=== PATIENT | male | born 1990 | race Caucasian/White ===

== ENCOUNTER 2016-07-28 11:00 | Emergency (ER) ==
[2016-07-28 11:04] VITALS: BP 139/75; TEMP 99.1; BMI 24.4
[2016-07-28] MEDS ORDERED: ZOFRAN 4 MG/2 ML IM STA (11:24)
[2016-07-28] MEDS ORDERED: MORPHINE 4 MG/ML SYRINGE IM STA (11:24)
[2016-07-28] MEDS ORDERED: SILVADENE CREAM TP STA (11:24)
[2016-07-28] MEDS ORDERED: LIDOCAINE OINTMENT 5% TP STA (11:25)
--- NOTE | 2016-07-28 11:28 | ED.PDOC ---
General ED Provider: Dr. KARLY ELIZABETH Chief Complaint: Burn Stated Complaint: burn left forearm Time Seen by Physician: 11:00 Mode of Arrival: Walk-In Information Source: Patient Exam Limitations: No limitations Nursing and Triage Documentation Reviewed and Agree: Yes Skin Complaint Exam - Burn Injury Complaint/Exam Onset/Duration: left forearm Length Of Exposure: 11 am Initial Severity: Moderate Current Severity: Moderate Location: LUE Character: Direct thermal contact Alleviating: Reports: Cool soaks Associated Signs and Symptoms: Denies: Short of air, Cough, Chest pain, Vision abnormality, LOC/Duration, Additional trauma Singed Facial Hair: No Singed Nasal Hair: No Stridor Present: No Respiratory Distress Present: No Circumferential Involvement to Trunk: No Circumferential Involvement to Extremity: No Entrance Wound Present: No Exit Wound Present: No Burn Location (Adult): Left Arm (Front) (only see photos) Estimated Burned Body Surface Area: 4.5 Review of Systems - Review Of Systems Constitutional: Reports: No symptoms Eyes: Reports: No symptoms Ears, Nose, Mouth, Throat: Reports: No symptoms Respiratory: Reports: No symptoms Cardiac: Reports: No symptoms GI: Reports: No symptoms : Reports: No symptoms Musculoskeletal: Reports: No symptoms Skin: Reports: Other (burn see photos) Neurological: Reports: No symptoms Endocrine: Reports: No symptoms Hematologic/Lymphatic: Reports: No symptoms All Other Systems: Reviewed and Negative Past Medical History - Past Medical History Previously Healthy: Yes Endocrine: Reports: None Cardiovascular: Reports: None Respiratory: Reports: None Hematological: Reports: None Gastrointestinal: Reports: Liver (hep c) Genitourinary: Reports: None Neuro/Psych: Reports: None Musculoskeletal: Reports: None Cancer: Reports: None - Surgical History General Surgical History: Reports: Tonsillectomy, Adenoidectomy - Family History Family History: Reports: Unknown - Social History Smoking Status: Current every day smoker Hx Substance Use: No Alcohol Screening: Occasionally Physical Exam - Physical Exam Appearance: Well-appearing, No pain distress, Well-nourished Eyes: VAN, EOMI, Conjunctiva clear ENT: Ears normal, Nose normal, Oropharynx normal Respiratory: Airway patent, Breath sounds clear, Breath sounds equal, Respirations nonlabored Cardiovascular: RRR, Pulses normal, No rub, No murmur GI/: Soft, Nontender, No masses, Bowel sounds normal, No Organomegaly Musculoskeletal: Normal strength, ROM intact, No edema, No calf tenderness Skin: Warm, Dry (burn left forearm 30 cm x 7 cm focal blister formation see photos) Neurological: Sensation intact, Motor intact, Reflexes intact, Cranial nerves intact, Alert, Oriented Psychiatric: Affect appropriate, Mood appropriate Critical Care Note - Critical Care Note Total Time (mins): 0 Course - Course Orders, Labs, Meds: Orders Category Date Time Status Lidocaine [Lidocaine Ointment 5%] MEDS 07/28/16 11:25 Stat 1 applic TP ONCE STA Morphine Sulfate [Morphine 4 mg/ml Syringe] MEDS 07/28/16 11:24 Stat 4 mg IM ONCE STA Ondansetron HCl/Pf [Zofran 4 mg/2 ml] MEDS 07/28/16 11:24 Stat 4 mg IM ONCE STA Silver Sulfadiazine [Silvadene Cream] MEDS 07/28/16 11:24 Stat 1 applic TP ONCE STA Medications Discontinued Medications Generic Name Dose Route Start Last Admin Trade Name Freq PRN Reason Stop Dose Admin Morphine Sulfate 4 mg 07/28/16 11:24 Morphine 4 Mg/Ml Syringe IM 07/28/16 11:25 ONCE STA Ondansetron HCl 4 mg 07/28/16 11:24 Zofran 4 Mg/2 Ml IM 07/28/16 11:25 ONCE STA Silver Sulfadiazine 1 applic 07/28/16 11:24 Silvadene Cream TP 07/28/16 11:25 ONCE STA Vital Signs: Temp Pulse Resp BP Pulse Ox 07/28/16 11:01 99.1 F 110 H 16 139/75 98 Departure - Departure Time of Disposition: 11:28 Disposition: HOME SELF-CARE Discharge Problem: Burn Instructions: Acute Wound Care (ED), Flash Burn of Skin (ED) Condition: Good Pt referred to PMD for follow-up: No Allergies/Adverse Reactions: Allergies No Known Allergies Allergy (Verified 07/28/16 11:04) Home Medications: Ambulatory Orders 1 [No Reported Medications] 0 mg PO DAILY 09/10/12
[2016-07-28] MEDS ORDERED: LIDOCAINE JELLY 2% MUCOUSMEMB STA (11:54)
== END 2016-07-28 12:35 | disposition home or self-care (01) ==
LOC: ED 11:00
DX: T22.212A Burn of second degree of left forearm, initial encounter (principal); T31.0 Burns involving less than 10% of body surface; X08.8XXA Exposure to other specified smoke, fire and flames, initial encounter; F17.210 Nicotine dependence, cigarettes, uncomplicated
CPT/HCPCS: 96372; 99283